=== PATIENT | female | born 1960 | race Caucasian/White ===

== ENCOUNTER 2017-10-21 17:08 | Emergency (ER) | payer MEDICAID ==
--- NOTE | 2017-10-21 17:46 | EDM.PDOC ---
ED HPI GENERAL MEDICAL PROBLEM - General Chief Complaint: Respiratory Problem Stated Complaint: Cough Time Seen by Provider: 10/21/17 17:15 Source of Information: Reports: Patient, RN, RN Notes Reviewed History Limitations: Reports: No Limitations - History of Present Illness INITIAL COMMENTS - FREE TEXT/NARRATIVE: Patient presents to the ED at [facility] complaining of a productive cough, chills. Patient states her symptoms have been occurring since last week. Patient was seen at the [facility] on 10/16/2017. Her influenza and strep screen were negative. Patient was started on Amoxil for 10 days, but did not start the medication "because I did not have the money." Patient denies any eye or ear symptoms. Patient states she is coughing a a green /yellow appearing purulent sputum. She feels somewhat SOB. No chest pain. Patient denies any N/V/D. She is trying to stay well hydrated with good PO fluid intake. No close family members or contacts with similar symptoms. Onset Date: 10/15/17 Left Chest Pain Score (Numeric/FACES): 10 - Related Data Allergies Allergy/AdvReac Type Severity Reaction Status Date / Time pseudoephedrine Allergy Hives Verified 10/21/17 17:34 [From [facility]] Home Meds: Home Meds Amoxicillin/Potassium Clav [Augmentin 875-125 Tablet] 1 tab PO BID 07/09/16 [ History] traMADol HCl [Ultram] 50 mg PO Q6H 07/09/16 [History] Amoxicillin/Potassium Clav [Augmentin 875-125 Tablet] 1 each PO BID 10 Days #20 tablet 10/21/17 [Rx] predniSONE [Deltasone] 1 tab PO BID #10 tablet 10/21/17 [Rx] Past Medical History - Past Health History Medical/Surgical History: Denies Medical/Surgical History - Past Surgical History HEENT Surgical History: Reports: Adenoidectomy, Tonsillectomy Social & Family History - Tobacco Use Smoking Status *Q: Current Every Day Smoker Years of Tobacco use: 40 Packs/Tins Daily: 0.5 - Recreational Drug Use Recreational Drug Use: No ED ROS GENERAL - Review of Systems Review Of Systems: See Below Constitutional: Reports: Fever, Chills, Decreased Appetite. Denies: Weakness HEENT: Denies: Ear Pain, Eye Discharge, Throat Pain Respiratory: Reports: Shortness of Breath, Cough, Sputum. Denies: Wheezing Cardiovascular: Denies: Chest Pain, Palpitations GI/Abdominal: Denies: Abdominal Pain, Nausea, Vomiting Skin: Reports: No Symptoms Neurological: Reports: No Symptoms. Denies: Dizziness, Headache ED EXAM, GENERAL - Physical Exam Exam: See Below Exam Limited By: No Limitations General Appearance: Alert, No Apparent Distress Eye Exam: Bilateral Eye: Normal Inspection Ears: Normal External Exam, Normal Canal, Normal TMs Ear Exam: Bilateral Ear: TM normal Nose: Clear Rhinorrhea Throat/Mouth: Normal Inspection, Normal Oropharynx, No Airway Compromise Neck: Supple Respiratory/Chest: Decreased Breath Sounds, Rhonchi (Right lung base) Cardiovascular: Normal Peripheral Pulses, Regular Rate, Rhythm Peripheral Pulses: 2+: Radial (L), Radial (R) GI/Abdominal: Normal Bowel Sounds, Soft, Non-Tender Neurological: Alert, Oriented Skin Exam: Warm, Dry, Intact, Normal Color, No Rash Course - Vital Signs Last Recorded V/S: Last Vital Signs Temp 39.2 C H 10/21/17 17:15 Pulse 106 H 10/21/17 17:15 Resp 20 10/21/17 17:15 BP 135/79 10/21/17 17:15 Pulse Ox 96 10/21/17 17:15 - Orders/Labs/Meds Orders: Active Orders 24 hr Category Date Time Status CXR [Chest 2V] [CR] Stat Exams 10/21/17 17:29 Taken CULTURE BLOOD [BC] Stat Lab 10/21/17 18:17 Received CULTURE BLOOD [BC] Stat Lab 10/21/17 18:25 Received Sodium Chloride 0.9% [Normal Saline] 1,000 ml Med 10/21/17 18:08 Active IV ONETIME Blood Culture x2 Reflex Set [OM.PC] Stat Oth 10/21/17 18:03 Ordered Medication Orders Sodium Chloride (Normal Saline) 1,000 mls @ 999 mls/hr IV ONETIME ONE Stop: 10/21/17 19:08 Last Admin: 10/21/17 18:15 Dose: 999 mls/hr Labs: Laboratory Tests 10/21/17 10/21/17 10/21/17 Range/Units 17:46 17:46 17:46 WBC 13.1 H (4.0-10.0) x10^3/uL RBC 3.98 L (4.00-5.50) x10^6/uL Hgb 12.3 D (12.0-16.0) g/dL Hct 36.3 (33.0-47.0) % MCV 91.2 (78.0-93.0) fL MCH 30.9 (26.0-32.0) pg MCHC 33.9 (32.0-36.0) g/dL RDW Coeff of Claude 13.5 (10.0-15.0) % Plt Count 265 (130-400) x10^3/uL Neut % (Auto) 80.2 H (50.0-80.0) % Lymph % (Auto) 12.7 L (25.0-50.0) % Deuel % (Auto) 6.8 (2.0-11.0) % Eos % (Auto) 0.2 (0.0-4.0) % Baso % (Auto) 0.1 L (0.2-1.2) % Sodium 141 (136-145) mmol/L Potassium 3.6 (3.5-5.1) mmol/L Chloride 105 (98-107) mmol/L Carbon Dioxide 23 (21-32) mmol/L BUN 6 L (7-18) mg/dL Creatinine 0.6 (0.55-1.02) mg/dL Est Cr Clr Drug Dosing 95.56 mL/min Estimated GFR (MDRD) > 60 Glucose 90 (74-106) mg/dL Lactic Acid 1.0 (0.4-2.0) mmol/L Calcium 8.7 (8.5-10.1) mg/dL C-Reactive Protein (<=0.9) mg/dL 10/21/17 Range/Units 17:46 WBC (4.0-10.0) x10^3/uL RBC (4.00-5.50) x10^6/uL Hgb (12.0-16.0) g/dL Hct (33.0-47.0) % MCV (78.0-93.0) fL MCH (26.0-32.0) pg MCHC (32.0-36.0) g/dL RDW Coeff of Claude (10.0-15.0) % Plt Count (130-400) x10^3/uL Neut % (Auto) (50.0-80.0) % Lymph % (Auto) (25.0-50.0) % Deuel % (Auto) (2.0-11.0) % Eos % (Auto) (0.0-4.0) % Baso % (Auto) (0.2-1.2) % Sodium (136-145) mmol/L Potassium (3.5-5.1) mmol/L Chloride (98-107) mmol/L Carbon Dioxide (21-32) mmol/L BUN (7-18) mg/dL Creatinine (0.55-1.02) mg/dL Est Cr Clr Drug Dosing mL/min Estimated GFR (MDRD) Glucose (74-106) mg/dL Lactic Acid (0.4-2.0) mmol/L Calcium (8.5-10.1) mg/dL C-Reactive Protein 19.0 H (<=0.9) mg/dL Meds: Medications Generic Name Dose Route Start Last Admin Trade Name Freq PRN Reason Stop Dose Admin Sodium Chloride 1,000 mls @ 999 mls/hr 10/21/17 18:08 10/21/17 18:15 Normal Saline IV 10/21/17 19:08 999 mls/hr ONETIME ONE Administration Discontinued Medications Generic Name Dose Route Start Last Admin Trade Name Freq PRN Reason Stop Dose Admin Ceftriaxone Sodium 2 gm 10/21/17 18:07 10/21/17 18:15 Rocephin IVPUSH 10/21/17 18:08 2 gm ONETIME ONE Administration Ondansetron HCl 4 mg 10/21/17 18:08 10/21/17 18:22 Zofran IVPUSH 10/21/17 18:09 4 mg ONETIME ONE Administration - Re-Assessments/Exams Free Text/Narrative Re-Assessment/Exam: 10/21/17 18:10 Patient reasessed. Discussed labs and xray results of early pneumonia. Patient states she now feels nauseated from coughing. Offered admission, patient declined stating she has home obligations. Departure - Departure Time of Disposition: 18:51 Disposition: Home, Self-Care 01 Condition: Good Clinical Impression: Pneumonia Qualifiers: Pneumonia type: due to unspecified organism Laterality: right Lung location: lower lobe of lung Qualified Code(s): J18.1 - Lobar pneumonia, unspecified organism - Discharge Information Prescriptions: Amoxicillin/Potassium Clav [Augmentin 875-125 Tablet] 1 each PO BID 10 Days #20 tablet predniSONE [Deltasone] 1 tab PO BID #10 tablet Instructions: Community-Acquired Pneumonia, Adult, [id number] Referrals: Josseline Escalona DO [Physician] - Forms: ED Department Discharge Additional Instructions: 1. Stay well hydrated and rest 2. Drink LOTS of water 3. Take all medications for the full coarse, even if you are feeling better 4. Avoid any cigarette smoke and other environmental inhalation irritants 5. Cough and deep breath several times an hour; keep your lungs expanded 6. See your Primary in 7-10 days for a checkup to make sure you are getting better 7. Call with any questions/concerns - Problem List Review Problem List Initiated/Reviewed/Updated: Yes - My Orders Last 24 Hours: My Active Orders 10/21/17 17:29 CXR [Chest 2V] [CR] Stat 10/21/17 18:03 Blood Culture x2 Reflex Set [OM.PC] Stat 10/21/17 18:08 Sodium Chloride 0.9% [Normal Saline] 1,000 ml IV ONETIME 10/21/17 18:17 CULTURE BLOOD [BC] Stat 10/21/17 18:25 CULTURE BLOOD [BC] Stat - Assessment/Plan Last 24 Hours: My Active Orders 10/21/17 17:29 CXR [Chest 2V] [CR] Stat 10/21/17 18:03 Blood Culture x2 Reflex Set [OM.PC] Stat 10/21/17 18:08 Sodium Chloride 0.9% [Normal Saline] 1,000 ml IV ONETIME 10/21/17 18:17 CULTURE BLOOD [BC] Stat 10/21/17 18:25 CULTURE BLOOD [BC] Stat Plan: Labs and xray discussed with patient. Offered admission for a diagnosis of pneumonia. Patient declined. Will start on PO Augmentin and a short coarse of Prednisone. Recommend close follow up with her PCP in the next few days. Recommend repeating chest xray in 10 days to re-eval pneumonia.
[2017-10-21 17:52] VITALS: BP 135/79
[2017-10-21 18:05] LABS: CHLORIDE,CL 105 mmol/L (98-107); SODIUM,NA 141 mmol/L (136-145)
[2017-10-21] MEDS ORDERED: cefTRIAXone 2 GM Vial IVPUSH ONE (18:07)
[2017-10-21] MEDS ORDERED: Ondansetron 4 MG/2 ML SDV IVPUSH ONE (18:08)
[2017-10-21] MEDS ORDERED: Sodium Chloride 0.9% 1,000 ML IV ONE (18:08)
== END 2017-10-21 19:40 | disposition home or self-care (01) ==
LOC: VM.ED 17:08
DX: J18.9 Pneumonia, unspecified organism (principal); F17.210 Nicotine dependence, cigarettes, uncomplicated; Z88.8 Allergy status to other drugs, medicaments and biological substances
CPT/HCPCS: 36415; 71046; 80048; 83605; 85025; 86140; 87040; 87804; 96361; 96374; 96375; 99283; J0696; J2405; J7030